=== PATIENT | female | born 1995 ===

== ENCOUNTER → 2017-03-08 | Outpatient (REF) | LOC: WSOH 13:32 | DX: Z02.89 Encounter for other administrative examinations (principal) ==

== ENCOUNTER → 2017-03-11 | Outpatient (REF) | LOC: WSOH 08:06 | DX: Z02.89 Encounter for other administrative examinations (principal) ==

== ENCOUNTER → 2017-03-15 | Outpatient (REF) | LOC: WSOH 10:00 | DX: Z02.89 Encounter for other administrative examinations (principal) ==

== ENCOUNTER → 2017-03-18 | Outpatient (REF) | LOC: WSOH 08:17 | DX: Z02.89 Encounter for other administrative examinations (principal) ==